=== PATIENT | male | born 1945 | race Caucasian/White ===

== ENCOUNTER 2017-05-17 11:27 | Outpatient (CLI) | payer MEDICARE, BC ==
[~2017-05-17] VITALS: Ht 182.9 cm; Wt 68.2 kg
--- NOTE | ~2017-05-17 | OP ---
PATIENT NAME: SELVIN FRYE MEDICAL RECORD: [id number] :[birth year] LOCATION:D.CAT ADMISSION DATE: SURGEON: PERCY BERMEO MD DATE OF OPERATION: 05/17/2017 PROCEDURE: Left heart catheterization, selective coronary angiography, right femoral artery approach. CATHETERS: A 5-Liberian sheath, 5/4 left and right Omer, 5/4 pig. The procedure was well tolerated and we proceeded immediately PTCA stenting of the LAD. FINDINGS: Left ventriculography in 30-degree PRATT view: Normal wall motion, normal systolic function. CORONARY ANATOMY. LEFT MAIN: Left main is free of disease. LAD: After the takeoff of the first septal branch has about 80% stenosis best seen in the AP cranial view. CIRCUMFLEX: Moderate-sized circumflex, free of disease. RIGHT CORONARY ARTERY: Right coronary artery is dominant artery, gives rise to PDA, free of disease. IMPRESSION: Single-vessel disease involving left anterior descending. PLAN: Intervention of this vessel momentarily. DESCRIPTION OF PROCEDURE: A 5-Liberian sheath was changed for a 6-Liberian sheath. A 3.0 EBU guiding catheter provided good guide catheter support followed by a 300 cm Whisper wire. Pre-deployment balloon used was a 3.0 x 15 mm [place] balloon up to 6 and 8 atmospheres. Stents were deployed in the following fashion: A 3.0 x 8 mm Integrity nondrug-eluting stent up to 14 atmospheres. Next, a 3.0 x 12 mm Integrity nondrug-eluting stent up to 14 atmospheres. Each inflation lasting approximately for 45 seconds. Final injection shows excellent resolution of 80% stenosis, no significant residual. NICKOLAS flow 3 throughout the case. Sheath was closed with ExoSeal device. Plavix was loaded in the lab. TRANSINT:[id number] Voice Confirmation ID: [id number] DOCUMENT ID: [id number] PERCY BERMEO MD at 1411 CC: [id number] DICTATION DATE: 05/17/17 1431 MODELING ANALYST: 05/17/17 1617 DEP CLI 05/17/17 [place] [address]
--- NOTE | ~2017-05-17 | HEMODYNAMI ---
PATIENT:SELVIN FRYE MEDICAL RECORD: [id number] : 49 LOCATION:[facility] ADMISSION DATE: 05/17/17 Generatedon:05/17/201714:26 Patient name: SELVIN FRYE Patient #: [id number] SSN: DO B: 1945 Date of study: 05/17/2017 Page: Of Hemodynamic Procedure Report Patient Data Patient Demographics Procedure consent was obtained First Name: SELVIN Gender: Male Last Name: MELVA : 1945 Patient #: [id number] Age: 71 year(s) Race: Unknown Additional ID: [id number] Contact details Address: [address] [place] [address] State: [place] City: [place] Zip code: [address] Past Medical History Allergies: No known allergies Admission Admission Data Admission Date: 05/17/2017 Admission Time: 11:27 Admit Source: Other Lab Results Lab Result Date: 05/17/2017 Lab Result Time: 12:25 Biochemistry Name Units Result Min Max BUN mg/dl 33 --(----)-* 7 18 Creatinine mg/dl 1.4 --(----)*- 0.6 1.3 CBC Name Units Result Min Max Hematocrit % 32.9 *-(----)-- 42 54 Hemoglobin g/dl 10.7 *-(----)-- 13.5 17.5 Procedure Procedure Types Cath Procedure Diagnostic Procedure [facility] w/Coronaries PCI Procedure Coronary Stent Coronary Stent Initial Miscellaneous Procedures Moderate Sedation up to 30 minutes Procedure Description Procedure Date Procedure Date: 05/17/2017 Procedure Start Time: 13:45 Procedure End Time: 14:25 Procedure Staff Name Function King Delgado MD Performing Physician Jaden Roberto RT Monitor Bobbi Vera RT Scrub Monica Orosco RN Nurse Procedure Data Cath Procedure Fluoroscopy Diagnostic fluoroscopy Total fluoroscopy Time: time: 12.2 min 12.2 min Diagnostic fluoroscopy Total fluoroscopy dose: dose: 1059 mGy 1059 mGy Contrast Material Contrast Material Type Amount (ml) Isovue 300 167 Entry Location Entry Primary Successful Side Size Upsize Upsize Entry Closure Succes sful Closure Location (Fr) 1 (Fr) 2 (Fr) Remarks Device Remarks Femoral Right 5 Fr 6 Fr Exoseal artery Short Estimated blood loss: 10 ml Diagnostic catheters Device Type Used For End Catheter Placement MULTIPACK JL 4.0 5Fr Procedure catheter MULTIPACK 3DRC 5Fr Procedure catheter MULTIPACK Pigtail 5 Fr Procedure catheter Procedure Complications No complications Procedure Medications Medication Administration Route Dosage Oxygen NC 2 l/min Lidocaine 2% added to field 20 Heparin Flush Bag added to field 2 bags (1000units/500ml NS) 0.9% NaCl I.V. 100 ml/hr Versed I.V. 1 mg Fentanyl I.V. 50 mcg Versed I.V. 1 mg Fentanyl I.V. 50 mcg Heparin Bolus I.V. 4000 units Integrilin (Bolus I.V. 6.2 ml 2mg/ml) Versed I.V. 1 mg Versed I.V. 1 mg Plavix P.O. 600 mg Hemodynamics Rest HGB: 10.7 (g/dl) Heart Rate: 91 (bpm) Pressure Samples Time Site Value (mmHg) Purpose Heart Use Rate(bpm) 13:52 LV 124/-16,8 Snapshot 88 13:53 AO 100/53(73) Pullback 88 13:53 LV 100/5,6 Pullback 88 Gradients Valve Time Site 1 Site 2 Mean SEP/DFP Peak To Heart Use (mmHg) (sec/min) Peak Rate (mmHg) (bpm) Aortic 13:53 LV AO 2 17 0 88 100/5,6 100/53(73) Calculations Valve P-P Mean Valve Index Valve Source Name Gradient Area Flow (cm2) Aortic 0 2 0 2 Snapshots Pre Cath Intra NCS Post Cath Vital Signs Time Heart Resp SPO2 etCO2 NIBP (mmHg) Rhythm Pain Sedation Rate (ipm) (%) (mmHg) Status Level (bpm) 13:30:11 95 12 96 29.3 169/89(126) NSR 0 (11) 10(A) , No pain 13:34:54 103 18 100 28.6 142/83(102) NSR 0 (11) 10(A) , No pain 13:39:37 89 17 100 27.8 122/79(97) NSR 0 (11) 10(A) , No pain 13:44:15 88 17 100 22.6 112/65(82) NSR 0 (11) 9(A) , No pain 13:48:52 88 15 100 31.6 111/69(86) NSR 0 (11) 9(A) , No pain 13:53:26 89 15 100 30.1 111/67(84) NSR 0 (11) 9(A) , No pain 13:58:03 86 16 99 28.6 113/62(91) NSR 0 (11) 9(A) , No pain 14:02:39 88 16 100 33.1 114/64(85) NSR 0 (11) 9(A) , No pain 14:07:16 87 17 100 30.1 113/63(88) NSR 0 (11) 9(A) , No pain 14:11:50 86 17 100 31.6 129/63(100) NSR 0 (11) 9(A) , No pain 14:16:29 88 18 100 26.3 120/64(89) NSR 0 (11) 9(A) , No pain 14:21:05 87 18 100 30.1 130/65(89) NSR 0 (11) 10(A) , No pain 14:25:42 85 16 100 32.4 133/79(99) NSR 0 (11) 10(A) , No pain Medications Time Medication Route Dose Verified Delivered Reason Notes Effectiveness by by 13:34:07 Oxygen NC 2 King Buffie used for l/min [facility] Rud[facility] page MD 13:34:15 Lidocaine 2% added 20ml King King for local to vial [facility] anesthetic field MD SON 13:34:22 Heparin Flush added 2 King King used for Bag to bags [facility] procedure (1000units/500ml field MD SON NS) 13:34:30 0.9% NaCl I.V. 100 King Buffie Per physician ml/hr [facility] Rudi Orosco RN, MD 13:38:35 Versed I.V. 1 mg King Celestinoie for sedation [facility] Rudi Orosco RN, MD 13:38:42 Fentanyl I.V. 50 King Buffie for sedation mcg [facility] Rudi Orosco RN, MD 13:47:38 Versed I.V. 1 mg King Buffie for sedation [facility] Rudi Orosco RN, MD 13:47:42 Fentanyl I.V. 50 King Anderson for sedation mcg [facility] Rudi Orosco RN, MD 13:56:41 Heparin Bolus I.V. 4000 Knig Anderson for verifi ed units [facility]. Rudi Orosco RN anticoagulation with dr MD cedillo 13:57:26 Integrilin I.V. 6.2 King Anderson for wasted (Bolus 2mg/ml) ml [facility] Rudi Orosco RN antiplatelet 3.8 ml MD therapy of vial 14:00:36 Versed I.V. 1 mg King Anderson for sedation verifi ed [facility]. Rudi Orosco RN with dr MD cedillo 14:08:05 Versed I.V. 1 mg King Anderson for sedation [facility]. Rudi Orosco RN, MD 14:21:23 Plavix P.O. 600 King Anderson for mg [facility] Rudi Orosco RN antiplatelet MD therapy Procedure Log Time Note 13:15:46 Bobbi Counts RT(R) sent for patient. Start room use. 13:21:20 Informed consent obtained and on chart 13:21:23 Admit Source: Other 13:21:44 Diagnostic Cath status Elective 13:21:47 Time tracking: Regular hours 13:21:52 Plan of Care:Hemodynamics will remain stable., Cardiac rhythm will remain stable., Comfort level will be maintained., Respiratory function will remain adequate., Patient/ family verbilizes understanding of procedure., Procedure tolerated without complication., Recovers from procedure without complications.. 13:22:07 Patient received from Pre/Post Procedure Room to [facility] 1 Alert and oriented. Tansferred to table in Supine position. 13:22:09 Warm blankets applied, and cecily hugger turned on for patient comfort. 13:22:09 Correct patient and procedure confirmed by team. 13:22:10 ECG and BP/O2 sat monitors applied to patient. 13:22:18 H&P Date Dictated: 05/13/2017 Within 30 days and on chart., H&P Addendum completed by physician on day of procedure. (MUST COMPLETE FOR ALL OUTPATIENTS). 13:23:01 Lab Result : BUN 33 mg/dl 13:23:01 Lab Result : Hematocrit 32.9 % 13:23:01 Lab Result : Hemoglobin 10.7 g/dl 13:23:01 Lab Result : Creatinine 1.4 mg/dl 13:23:04 Pre-procedure instructions explained to patient. 13:23:04 Pre-op teaching completed and patient verbalized understanding. 13:23:06 Family in waiting room. 13:23:07 Patient NPO since Midnight. 13:23:12 Patient allergic to No known allergies 13:23:14 Is the patient allergic to Iodine/contrast media? No. 13:23:36 Is patient on blood thinner?No 13:23:37 Patient diabetic? No. 13:29:14 Vital chart was started 13:34:07 Oxygen 2 l/min NC was administered by Monica Orosco RN; used for procedure; 13:34:15 Lidocaine 2% 20ml vial added to field was administered by King Delgado MD; for local anesthetic; 13:34:22 Heparin Flush Bag (1000units/500ml NS) 2 bags added to field was administered by King Delgado MD; used for procedure; 13:34:30 0.9% NaCl 100 ml/hr I.V. was administered by Monica Orosco RN; Per physician; 13:35:12 Baseline sample Acquired. 13:35:16 Rhythm: sinus rhythm 13:35:17 Full Disclosure recording started 13:35:23 Previous problem with sedation/anesthesia? No ? 13:35:24 Snore? Yes 13:35:24 Sleep apnea? No 13:35:26 Deviated septum? No 13:35:26 Opens mouth fully? Yes 13:35:27 Sticks out tongue? Yes 13:35:28 Airway obstruction? No ? 13:35:31 Dentures? Yes in tight 13:35:34 Pre procedure: right dorsailis pedis pulse 2+ Normal; easily identifiable; not easily obliterated 13:35:36 Patient pain scale 0/10 ?. 13:35:42 IV patent on arrival in right forearm with 0.9% NaCl at [facility]. 13:36:33 Lab results completed and on chart. 13:36:36 Right groin area was prepped with chlora-prep and draped in sterile fashion 13:36:39 Alarms reviewed by R. N. 13:36:40 Sharps counted by scrub and verified by R.N. 13:36:44 Use device set Femoral Dx 13:36:46 ACIST Syringe (72434) opened to sterile field. 13:36:47 Medline Cath Pack ([id number]) opened to sterile field. 13:36:47 Bag Decanter (2001S) opened to sterile field. 13:36:49 ACIST Hand Control (84158) opened to sterile field. 13:36:49 ACIST Manifold (37490) opened to sterile field. 13:36:51 Tegaderm 4 x 4 (1626W) opened to sterile field. 13:36:54 SHEATH 5FR Cooter ([id number]) opened to sterile field. 13:36:55 DIAGNOSTIC WIRE .035 260cm J wire (065093) opened to sterile field. 13:36:56 DIAGNOSTIC Multipack 5Fr catheter set (HL2323) opened to sterile field. 13:36:58 PERCUTANEOUS ENTRY 19GA needle opened to sterile field. 13:37:13 Physician arrived 13:37:13 --------ALL STOP TIME OUT------ 13:37:14 Final Timeout: patient, procedure, and site verified with staff and physician. All members of the team are in agreement. 13:37:17 Right groin site verified by team. 13:37:20 Physical assessment completed. ASA score P 2 - A patient with mild systemic disease as per King Delgado MD. 13:37:23 Sedation plan: IV Moderate Sedation Medication:Versed, Fentanyl 13:38:35 Versed 1 mg I.V. was administered by Monica Orosco RN; for sedation; 13:38:42 Fentanyl 50 mcg I.V. was administered by Monica Orosco RN; for sedation; 13:41:14 Zero performed for pressure channel P1 13:41:17 Zero performed for pressure channel P1 13:45:38 Procedure started. 13:45:54 Local anesthetic to right femoral artery with Lidocaine 2% by King Delgado MD.INITIAL ACCESS ONLY 13:46:44 A 5 Fr sheath was inserted into the Right Femoral artery 13:47:07 A MULTIPACK JL 4.0 5Fr catheter was advanced over the wire and used for Procedure. 13:47:38 Versed 1 mg I.V. was administered by Monica Orosco RN; for sedation; 13:47:42 Fentanyl 50 mcg I.V. was administered by Monica Oorsco RN; for sedation; 13:47:55 LCA angiography performed. 13:48:54 Catheter exchanged over wire. 13:49:12 A MULTIPACK 3DRC 5Fr catheter was advanced over the wire and used for Procedure. 13:50:51 RCA angiography performed. 13:51:05 Catheter exchanged over wire. 13:51:09 A MULTIPACK Pigtail 5 Fr catheter was advanced over the wire and used for Procedure. 13:52:09 LV hemodynamics recorded. 13:52:45 LV gram done using PRATT 13:52:48 Injector settings: Ml/sec: 10, Volume: 20, 13:52:53 EF : 55 % 13:53:37 GUIDE 6FR EBU 3.5 catheter ([id number]) opened to sterile field. 13:53:38 INFLATOR Merit BasixCompak (PT8794) opened to sterile field. 13:53:55 SHEATH 6FR Cooter (IVH482) opened to sterile field. 13:54:22 WHISPER 300cm guide wire ([id number]) opened to sterile field. 13:56:29 Catheter removed. 13:56:38 Sheath upsized to a 6 Fr Short. 13:56:41 Heparin Bolus 4000 units I.V. was administered by Monica Orosco RN; for anticoagulation; verified with dr cedillo 13:56:47 6 Fr ebu 3.5 guide catheter was inserted over the wire 13:56:52 whisper wire advanced. 13:57:26 Integrilin (Bolus 2mg/ml) 6.2 ml I.V. was administered by Monica Orosco RN; for antiplatelet therapy; wasted 3.8 ml of vial 14:00:36 Versed 1 mg I.V. was administered by Monica Orosco RN; for sedation; verified with dr cedillo 14:01:29 Wire removed. 14:01:42 GUIDE 6FR EBU 3.0 catheter ([id number]) opened to sterile field. 14:01:52 Guide catheter removed. 14:01:58 6 Fr ebu 3.0 guide catheter was inserted over the wire 14:02:27 whisper wire advanced. 14:06:31 Wire advanced across lesion. 14:08:05 Versed 1 mg I.V. was administered by Monica Orosco RN; for sedation; 14:08:27 The INTEGRITY OTW 3.0 X 12 stent ([id number]) was advanced then removed because of failure to cross lesion 14:10:03 CHOICE PT Extra Support J 300cm guide wire ([id number]) opened to sterile field. 14:10:11 Wire removed. 14:10:17 choice pt wire advanced. 14:10:20 Wire advanced across lesion. 14:11:10 Inflation number: 1 A EMERGE OTW 3.0 x 12 balloon ([id number]) was prepped and advanced across the Mid LAD, then inflated to 10 SADIA for 0:30 (min:sec). 14:11:26 Inflation number: 2 The EMERGE OTW 3.0 x 12 balloon ([id number]) was reinflated across the Mid LAD, to 10 SADIA for 0:11 (min:sec). 14:11:44 Balloon removed over the wire. 14:14:28 Inflation Number: 3 A INTEGRITY OTW 3.0 X 12 stent ([id number]) was prepped and advanced across the Mid LAD. The stent was deployed at 12 SADIA for 0:19 (min:sec). 14:15:11 Inflation number: 4 The stent balloon was then re-inflated across the Mid LAD to 6 SADIA for 0:10 (min:sec). 14:16:16 Stent catheter was removed intact over wire. 14:19:08 Inflation Number: 5 A INTEGRITY OTW 3.0 X 9 stent ([id number]) was prepped and advanced across the Mid LAD. The stent was deployed at 14 SADIA for 0:45 (min:sec). 14:19:34 Stent catheter was removed intact over wire. 14:19:35 Wire removed. 14:19:35 Guide catheter removed. 14:19:41 EXOSEAL 6Fr (EX600) opened to sterile field. 14:19:48 Sheath removed intact; hemostasis achieved with Exoseal to the Right Femoral artery. 14:19:50 Procedure ended.(Physican Out) 14:21:23 Plavix 600 mg P.O. was administered by Monica Orosco RN; for antiplatelet therapy; 14:23:00 Fluoroscopy time 12.20 minutes. 14:23:04 Fluoroscopy dose: 1059 mGy 14:23:04 Flurop Dose total: 1059 14:23:25 Contrast amount:Isovue 300 167ml. 14:23:27 Sharps counted by scrub and verified by R.N. 14:23:29 Insertion/operative site no bleeding no hematoma. 14:23:31 Post-op/insertion site Right Femoral artery dressed using a 4 x 4 and Tegaderm. 14:23:36 Post right femoral artery:stable, soft, clean and dry 14:23:37 Post Procedure Pulses reassessed and unchanged 14:23:46 Post-procedure physical assessment completed. ASA score P 2 - A patient with mild systemic disease as per King Delgado MD. 14:24:00 Post procedure rhythm: unchanged. 14:24:04 Estimated blood loss: 10 ml 14:24:06 Post procedure instruction explained to patient.Patient verbalizes understanding. 14:24:07 Patient needs reinforcement of post procedure teaching. 14:24:43 Procedure type changed to Cath procedure, Diagnostic procedure, LHC, LHC w/Coronaries, PCI procedure, Coronary Stent, Coronary Stent Initial, Miscellaneous Procedures, Moderate Sedation up to 30 minutes 14:25:15 Procedure and supply charges have been captured, reviewed, submitted and are correct. 14:25:17 Procedure Complication : No complications 14:25:19 Vital chart was stopped 14:25:19 See physician's report for complete and final results. 14:25:21 Report given to Pre/Post Procedure Room. 14:25:23 Patient transfered to Pre/Post Procedure Room with Stretcher. 14:25:25 Procedure ended. 14:25:25 Full Disclosure recording stopped 14:26:11 End room use (Document Last) Intervention Summary Intervention Notes Time ActionType Lesion and Equipment Action# Pressure Duration Attributes Used 14:08:27 Discard INTEGRITY Stent OTW 3.0 X 12 stent ([id number]) 14:11:10 Inflate Mid LAD EMERGE OTW 1 10 00:30 balloon 3.0 x 12 balloon ([id number]) 14:11:26 Reinflate Mid LAD EMERGE OTW 2 10 00:11 balloon 3.0 x 12 balloon ([id number]) 14:14:28 Place stent Mid LAD INTEGRITY 3 12 00:19 OTW 3.0 X 12 stent ([id number]) 14:15:11 Reinflate Mid LAD INTEGRITY 4 6 00:10 stent OTW 3.0 X 12 balloon stent ([id number]) 14:19:08 Place stent Mid LAD INTEGRITY 5 14 00:45 OTW 3.0 X 9 stent ([id number]) Device Usage Item Name Manufacture Quantity Catalog Number Hospital Part Current Min imal Lot# / Charge Number Stock Stock Serial# Code ACIST Acist 1 89508 915042 473857 940262 20 Syringe Medical (99209) Systems Inc Medline Cath Cardinal 1 [id number] 530071 82842 288321 5 Pack Health ([id number]) Bag Decanter Microtek 1 2001S 039068 88744 691809 5 (2001S) Medical Inc. ACIST Hand Acist 1 79275 746602 025477 285147 5 Control Medical (99520) Systems Inc ACIST Acist 1 04348 295888 433626 664022 5 Manifold Medical (06138) Systems Inc Tegaderm 4 x 3M 1 1626W 548382 464893 380901 5 4 (1626W) SHEATH 5FR Terumo 1 RHC576 074789 727501 880985 40 Cooter (PGP701) DIAGNOSTIC [facility] Geraldo 1 719974 107595 488407 987287 30 WIRE .035 260cm J wire (329645) DIAGNOSTIC Cardinal 1 OU8076 690898 35754 748401 30 Multipack Health 5Fr catheter set (OD3946) PERCUTANEOUS [facility] 1 P08665 637980 904961 5 ENTRY 19GA needle MULTIPACK JL Cardinal 1 178558 5 4.0 5Fr Health catheter MULTIPACK Cardinal 1 434741 5 3DRC 5Fr Health catheter MULTIPACK Cardinal 1 413398 5 Pigtail 5 Fr Health catheter GUIDE 6FR Medtronic 1 [id number] 274051 63804 908210 3 EBU 3.5 catheter ([id number]) INFLATOR [employer] 1 AV5120 020414 965469 535323 15 [facility] Medical BasixCompak (YZ3288) SHEATH 6FR Terumo 1 XPY155 762220 649793 122586 40 Cooter (JBN971) WHISPER Meza 1 [id number] 635946 589609 933387 5 300cm guide Vascular wire ([id number]) GUIDE 6FR Medtronic 1 [id number] 851926 74276 435155 0 EBU 3.0 catheter (OA3UUE73) INTEGRITY Medtronic 1 [id number] 804292 641598 2 [id number] OTW 3.0 X 12 stent ([id number]) CHOICE PT [place] 1 [id number] 855529 838321 267550 5 Extra Scientific Support J 300cm guide wire ([id number]) EMERGE OTW [place] 1 [id number] 994572 767128 151400 5 [id number] 3.0 x 12 Scientific balloon ([id number]) INTEGRITY Medtronic 1 [id number] 686117 024297 1 [id number] OTW 3.0 X 9 stent ([id number]) EXOSEAL 6Fr Cardinal 1 EX600 687699 047322 382728 10 (EX600) Health Signature Audit [place] Stage Time Signature Unsigned Intra-Procedure 05/17/2017 Jaden Roberto 2:26:39 PM RT(R) Signatures Monitor : Jaden Roberto RT Signature : Date : Time : [address] [address]
[2017-05-17] MEDS ORDERED: FUROSEMIDE20 MG PO (12:14)
[2017-05-17] MEDS ORDERED: PREDNISONE10 MG PO (12:14)
[2017-05-17] MEDS ORDERED: KLOR-CON 1010 MEQ PO (12:15)
[2017-05-17] MEDS ORDERED: ANORO ELLIPTA1 EACH INH (12:16)
[2017-05-17] MEDS ORDERED: EDARBYCLOR 40-1 EACH PO (12:16)
[2017-05-17 12:35] VITALS: BP 126/73; Ht 182.9 cm; Wt 68.2 kg
[2017-05-17 12:39] LABS: ANION GAP 14.8 mmol/L (8-16); CALCIUM 9.6 mg/dL (8.5-10.1); CREATININE - SERUM 1.4 mg/dL (0.6-1.3); POTASSIUM - SERUM 3.8 mmol/L (3.5-5.1)
[2017-05-17 12:43] LABS: HEMATOCRIT 32.9 % (42.0-54.0); HEMOGLOBIN 10.7 g/dL (13.5-17.5); LYMPHOCYTES 33.6 % (15-50); MCH 28.7 pg (26.0-34.0); MCHC 32.5 g/dL (31.0-37.0); MCV 88.2 fL (80.0-100.0); MEAN PLATELET VOLUME 7.7 fL (7.4-10.4); NEUTROPHILS 59.6 % (40-80); PLATELET COUNT 279 10x3/uL (130-400); RBC 3.73 10x6/uL (4.20-6.10); RDW 20.2 % (11.5-14.5); WBC 6.1 10x3/uL (4.8-10.8)
== END 2017-05-17 18:30 | disposition home or self-care (01) ==
LOC: D.CATH 11:27
PROVIDERS: Internal Medicine Interventional Cardiology
DX: I20.9 Angina pectoris, unspecified (principal); I50.9 Heart failure, unspecified; I10 Essential (primary) hypertension; R06.00 Dyspnea, unspecified; Z01.812 Encounter for preprocedural laboratory examination

== ENCOUNTER → 2019-01-08 10:24 | Outpatient (CLI) | payer MEDICARE, BC ==
[2017-05-17 12:35] VITALS: BMI 20.4
[~2019-01-08 10:24] MED LIST: ANORO ELLIPTA1 EACH INH; EDARBYCLOR 40-1 EACH PO; FUROSEMIDE20 MG PO; KLOR-CON 1010 MEQ PO; PREDNISONE10 MG PO
--- NOTE | 2019-01-12 12:52 | EC ---
PATIENT:SELVIN FRYE DATE OF SERVICE: 01/08/19 SEX: M MEDICAL RECORD: [id number] DATE OF : 49 LOCATION:D[facility] AGE OF PATIENT: 73 ADMISSION DATE: 01/08/19 REFERRING PHYSICIAN: INTERPRETING PHYSICIAN: PERCY BERMEO MD ECHOCARDIOGRAM REPORT ECHO CHARGES 4 ECHO COMPLETE Date: 01/08/19 CLINICAL DIAGNOSIS: HTN/MURMUR H/O CAD ECHOCARDIOGRAPHIC MEASUREMENTS (adult normal given) AC root (d.<3.7cm) 3.0 cm LV Septum d (<1.2 cm> 1.0 cm Valve Excursion 1.4 cm LV Septum (systole) 1.5 cm Left Atria (s.<4.0cm> 3.8 cm LVPW d(<1.2cm) 1.1 cm RV (d.<2.3cm) 2.8 cm LVPW (sytole) 1.6 cm LV diastole(<5.6CM) 5.7 cm MV E-F(>70mm/sec) cm LV systole 4.3 cm LVOT Diameter 1.9 cm MV exc.(>10mm) cm Est.ejection fraction (50-75%) % DOPPLER: LVIT cm/sec A 95.0 cm/sec E 82.0 cm/sec LA cm/sec RVSP 33.0 mmHg LVOT 117 cm/sec AOP1/2T m/s Asc. Ao 192 cm/sec RVOT 66.0 cm/sec RA cm/sec PA 119 cm/sec AV Gradient Peak 15.0 mmHg AV Mean 7.7 mmHg AV Area 2.0 cm MV Gradient Peak 6.5 mmHg MV Mean 3.2 mmHg MV Area cm COMMENTS: OP - HC Cell Technician: Jossy DURANOE Waste Specialist: 3 Dr. Delgado TAPE# PACS Pericardial Effusion N DATE OF SERVICE: 01/08/2019 Adequate 2D, color flow imaging, spectral Doppler, and M-Mode. No LVH. LV internal dimensions are normal. Wall motion is normal. EF is greater than or equal to 55%. Aortic valve is tricuspid. No evidence of stenosis by Doppler interrogation. Left atrium is normal at 3.8 cm. Mitral valve shows no prolapse. Right-sided chambers are grossly normal. Mild plus TR by color flow imaging. ECHOCARDIOGRAM REPORT [id number] SELVIN FRYE TRANSINT:[id number] Voice Confirmation ID: [id number] DOCUMENT ID: [id number] PERCY BERMEO MD at 1252 CC: [id number] DICTATION DATE: 01/11/19 1348 SCALER PACKER: 01/11/19 1506 DEP CLI 01/08/19 [place] [id number] [place] [id number]
== END | disposition home or self-care (01) ==
LOC: D.HCCECHO 10:24 → D.HCCARDIO 10:30 → D.HCCECHO 10:30
PROVIDERS: ATTEND Internal Medicine Interventional Cardiology
DX: I10 Essential (primary) hypertension (principal)